=== PATIENT | male | born 1985 | race Hispanic/Latino ===

== ENCOUNTER 2018-06-20 08:55 | Outpatient (CLI) | payer OTHER | END 2018-06-20 08:56 | disposition home or self-care (01) | LOC: DTY/OP 08:55 | PROVIDERS: ATTEND Family Medicine | DX: E11.51 Type 2 diabetes mellitus with diabetic peripheral angiopathy without gangrene (principal); Z71.3 Dietary counseling and surveillance | CPT/HCPCS: 97802 ==

== ENCOUNTER 2019-06-13 12:29 | Day surgery (SDC) | payer OTHER ==
[2019-06-12 14:48] VITALS: BMI 29.4
[~2019-06-13 12:29] MED LIST: Fluorouracil 100 MG, EPINEPHrine 0.3 MG, Dextrose 50% 3 ML in Ophthalmic Irrigation Sol... IRR SCH
[2019-06-13] MEDS ORDERED: Cyclopentolate 1% Opth Drop 2 ML BOT ONE (13:07)
[2019-06-13] MEDS ORDERED: Phenylephrine 2.5% Ophth Soln 5 ML BOT ONE (13:07)
[2019-06-13] MEDS ORDERED: Fentanyl 100 MCG/2 ML VIAL ONE (14:51)
[2019-06-13] MEDS ORDERED: Midazolam HCl 2 mg/2 ml Vial ONE (14:51)
--- NOTE | 2019-06-13 22:57 | OP ---
DATE OF PROCEDURE: 06/13/2019 PREOPERATIVE DIAGNOSIS: Tractional retinal detachment, left eye. POSTOPERATIVE DIAGNOSIS: Tractional retinal detachment, left eye. PROCEDURES PERFORMED: Pars plana vitrectomy and tractional retinal detachment repair, left eye. ANESTHESIA: Local with monitored anesthesia care. PROCEDURE IN DETAIL: The patient was identified in preoperative holding area. Appropriate informed consent for the planned surgical procedure on the left eye had been obtained. The patient was transported to the operative suite. Appropriate cardiopulmonary monitoring was established. Local anesthesia was obtained using retrobulbar modified Van Lint lid block using 50:50 mixture of 4% lidocaine and 0.75% bupivacaine. The patient was prepped and draped in usual sterile manner for ophthalmic surgery, left eye. Lid speculum was placed in the left eye. 25-gauge trocar was placed in conjunctiva and sclera superotemporally, inferotemporally, and supranasally. Infusion line was placed inferotemporally. Light pipe vitreous cutter was inserted into the eye. Core vitrectomy was performed. Extensive tractional elevation of the retina was identified. This was all carefully dissected from the retinal surface using end-gripping forceps and vitreous cutter. No breaks were found. Panretinal photocoagulation was placed into nonmacular areas of the retina. Extensive diathermy was needed to control hemorrhaging. Trocars were removed. Supratemporal sclerotomy was noted to be leaking. It was suture closed with 6-0 plain gut suture. Retrobulbar Kenalog and subconjunctival Ancef were placed. Antibiotic ointment was placed. Eye was patched and shielded. The patient was taken to the postoperative recovery unit in good condition, having suffered no immediate perioperative complications. The patient was instructed to keep patch and shield on. Avoid lifting or bending. Followup appointment in the morning with Dr. Ny. Job ID: [id number]
== END 2019-06-13 17:14 | disposition home or self-care (01) ==
LOC: SDC 12:29
PROVIDERS: ATTEND Ophthalmology Retina Specialist
PROC: 08T53ZZ Resection of Left Vitreous, Percutaneous Approach (ICD-10-PCS; principal; 2019-06-13)
DX: H33.42 Traction detachment of retina, left eye (principal)
CPT/HCPCS: 99283; J0171; J2250; J3010; J9190

== ENCOUNTER 2019-06-13 20:30 | Emergency (ER) | payer OTHER ==
[2019-06-13] MEDS ORDERED: HYDROcodone/Acetaminophen 5/325 mg Tablet ONE (21:00)
== END 2019-06-13 21:23 | disposition home or self-care (01) ==
LOC: ERS 20:30
DX: H59.89 Other postprocedural complications and disorders of eye and adnexa, not elsewhere classified (principal); E11.9 Type 2 diabetes mellitus without complications; Z79.84 Long term (current) use of oral hypoglycemic drugs

== ENCOUNTER 2019-08-22 07:25 | Day surgery (SDC) | payer OTHER ==
[2019-08-21 09:16] VITALS: BMI 30.2
[~2019-08-22 07:25] MED LIST changes: +EPINEPHrine 0.3 MG, Dextrose 50% 3 ML in Ophthalmic Irrigation Solution 500 ML IVP SCH; -Fluorouracil 100 MG, EPINEPHrine 0.3 MG, Dextrose 50% 3 ML in Ophthalmic Irrigation Sol... IRR SCH
[2019-08-22] MEDS ORDERED: Phenylephrine 2.5% Ophth Soln 5 ML BOT ONE (08:16)
[2019-08-22] MEDS ORDERED: Cyclopentolate 1% Opth Drop 2 ML BOT ONE (08:16)
[2019-08-22] MEDS ORDERED: Lidocaine 1% PF 5 ML VIAL ONE (10:34)
[2019-08-22] MEDS ORDERED: Bupivacaine PF 0.75% SDV 10 ML ONE (10:34)
[2019-08-22] MEDS ORDERED: CEFAZOLIN 1 GM VIAL ONE (10:34)
[2019-08-22] MEDS ORDERED: Lidocaine 4% PF 5 ML AMP ONE (10:34)
[2019-08-22] MEDS ORDERED: PROPOFOL 20 ML ONE (11:18)
[2019-08-22] MEDS ORDERED: Midazolam HCl 2 mg/2 ml Vial ONE (11:18)
--- NOTE | 2019-08-22 17:06 | OP ---
DATE OF PROCEDURE: 08/22/2019 PREOPERATIVE DIAGNOSIS: Vitreous hemorrhage, left eye. POSTOPERATIVE DIAGNOSIS: Vitreous hemorrhage, left eye. PROCEDURES PERFORMED: Pars plana vitrectomy and membrane peel, left eye. ANESTHESIA: Local with monitored anesthesia care. DESCRIPTION OF PROCEDURE: The patient was identified in the preoperative holding area. Appropriate informed consent for the planned surgical procedure on the left eye had been obtained. The patient was transported to the operative suite. Appropriate cardiopulmonary monitoring was established. Local anesthesia was obtained using retrobulbar block. The patient was prepped and draped in usual sterile manner for ophthalmic surgery of left eye. Lid speculum was placed in the left eye. 25-gauge trocars were placed in conjunctiva and sclera superotemporally, inferotemporally, and supranasally. Infusion line was placed inferotemporally. Light pipe and vitreous cutter were inserted into the eye. Core vitrectomy was performed. Vitreous hemorrhage was cleared from the vitreous cavity. Trocars were removed. At the end of the case, the inferotemporal trocar site bled reintroducing blood into the eye. Trocars were reintroduced into the eye, and blood was cleared. Trocar sites were suture closed. Subconjunctival Ancef was placed. Antibiotic ointment was placed. The eye was patched and shielded. The patient was taken to postoperative recovery unit in good condition having suffered no immediate perioperative complications. The patient was instructed to keep patch and shield on. Followup appointment with Dr. Ny. Job ID: [id number]
== END 2019-08-22 11:40 | disposition home or self-care (01) ==
LOC: SDC 07:25
PROVIDERS: ATTEND Ophthalmology Retina Specialist
PROC: 08T53ZZ Resection of Left Vitreous, Percutaneous Approach (ICD-10-PCS; principal; 2019-08-22)
DX: H43.12 Vitreous hemorrhage, left eye (principal); Z79.84 Long term (current) use of oral hypoglycemic drugs
CPT/HCPCS: J0171; J0690; J2001; J2250; J2704; J3490

== ENCOUNTER 2021-06-05 02:00 | Emergency (ER) | payer BC, OTHER ==
[2021-06-05 02:55] LABS: #Lymphocytes 0.9 thou/uL (1.20-3.40); #Monocytes 0.3 thou/uL (0.11-0.59); #Neutrophils 1.3 thou/uL (1.40-6.50); %Basophils 1.6 % (0.0-1.0); %Eosinophils 1.9 % (0.0-10.0); %Lymphocytes 35.4 % (21.0-51.0); %Monocytes 9.7 % (0.0-10.0); %Neutrophils 51.5 % (42.0-75.0); Hemoglobin 13.7 g/dL (14.0-18.0); Mean Corpuscular HGB CONC 37.4 g/dL (32.0-36.0); Mean Corpuscular Hemoglobin 33.5 pg (27.0-31.0); Mean Corpuscular Volume 89.6 fL (78.0-98.0); Mean Platelet Volume 7.2 fL (7.4-10.4); Platelet Count 133 thou/uL (130-400); RBC Distribution Width 12.1 % (11.5-14.5); Red Blood Cell (RBC) Count 4.08 mill/uL (4.70-6.10); White Blood Cell (WBC) Count 2.6 thou/uL (4.8-10.8)
[2021-06-05 02:56] LABS: ALT (SGPT) 47 U/L (8-55); AST (SGOT) 28 U/L (5-34); Albumin 3.4 g/dL (3.5-5.0); Alkaline Phosphatase 84 U/L (40-110); Anion Gap 9 mmol/L (10-20); BUN (Urea Nitrogen) 17 mg/dL (8.9-20.6); Bilirubin, Total 0.6 mg/dL (0.2-1.2); Calc. Creatinine Clearance 0 mL/min (70-130); Calcium 8.4 mg/dL (7.8-10.44); Carbon Dioxide 28 mmol/L (22-29); Chloride 102 mmol/L (98-107); Globulin 2.9 g/dL (2.4-3.5); Glucose 150 mg/dL (70-105); Potassium 3.6 mmol/L (3.5-5.1); Protein, Total 6.3 g/dL (6.0-8.3); Sodium 135 mmol/L (136-145)
[2021-06-05] MEDS ORDERED: Iopamidol-370 76% 500 ML 1 ML ONE (09:23)
== END 2021-06-05 06:22 | disposition home or self-care (01) ==
LOC: ERS 02:00
DX: R55 Syncope and collapse (principal); S01.81XA Laceration without foreign body of other part of head, initial encounter; U07.1 COVID-19; E11.9 Type 2 diabetes mellitus without complications; Z79.84 Long term (current) use of oral hypoglycemic drugs; Z79.899 Other long term (current) drug therapy; W19.XXXA Unspecified fall, initial encounter
CPT/HCPCS: 36415; 70450; 71275; 80053; 83880; 84484; 85025; 93005; Q9967

== ENCOUNTER 2023-09-07 11:23 | Emergency (ER) | payer BC ==
[2023-09-07] MEDS ORDERED: Ketorolac Tromethamine 30 MG/ML VIAL ONE (11:39)
[2023-09-07] MEDS ORDERED: Morphine 4 MG/ML VIAL ONE (11:39)
[2023-09-07 11:54] LABS: #Eosinphils 0.1 thou/uL (0.0-0.7); #Monocytes 0.3 thou/uL (0.11-0.59); #Neutrophils 3.7 thou/uL (1.40-6.50); %Basophils 0.4 % (0.0-1.0); %Eosinophils 1.4 % (0.0-10.0); %Lymphocytes 20.5 % (21.0-51.0); %Monocytes 6.4 % (0.0-10.0); %Neutrophils 71.1 % (42.0-75.0); Hematocrit 40.9 % (42.0-52.0); Hemoglobin 14.7 g/dL (14.0-18.0); Mean Corpuscular HGB CONC 35.9 g/dL (32.0-36.0); Mean Corpuscular Hemoglobin 32.2 pg (27.0-31.0); Mean Corpuscular Volume 89.7 fl (78.0-98.0); Mean Platelet Volume 9.5 fL (7.4-10.4); Platelet Count 176 10x3/uL (130-400); RBC Distribution Width 11.8 % (11.5-14.5); Red Blood Cell (RBC) Count 4.56 mill/uL (4.70-6.10); White Blood Cell (WBC) Count 5.1 10x3/uL (4.8-10.8)
[2023-09-07 12:17] LABS: ALT (SGPT) 44 U/L (8-55); AST (SGOT) 32 U/L (5-34); Albumin 3.7 g/dL (3.5-5.0); Alkaline Phosphatase 79 U/L (40-110); Anion Gap 11 mmol/L (10-20); BUN (Urea Nitrogen) 20 mg/dL (8.9-20.6); Bilirubin, Total 0.7 mg/dL (0.2-1.2); Calc. Creatinine Clearance 0 mL/min (70-130); Calcium 8.9 mg/dL (7.8-10.44); Carbon Dioxide 27 mmol/L (22-29); Chloride 109 mmol/L (98-107); Estimated GFR 83; Globulin 2.6 g/dL (2.4-3.5); Glucose 105 mg/dL (70-105); Protein, Total 6.3 g/dL (6.0-8.3); Sodium 143 mmol/L (136-145)
[2023-09-07 12:38] LABS: Bacteria/HPF None Seen HPF (None Seen); Bilirubin Negative (Negative); Blood, Urine 3+ (Negative); CAUTI Indications for Culture Pelvic or flank pain; Clarity Clear (Clear); Glucose, Urine (Dipstick) Normal (Negative); Ketone, Urine Negative (Negative); Leukocyte Negative Leu/uL (Negative); Nitrite Negative (Negative); Protein, Urine (Dipstick) 200 mg/dL (Neg-Trace); Specific Gravity, Urine 1.014 (1.002-1.036); Squamous Epithelial 0-3 HPF (0-3); Urobilinogen Normal mg/dL (Less than 2); WBC/HPF 0-3 HPF (0-3); pH, Urine 5.5 (5.0-9.0)
[2023-09-07 12:44] LABS: Urine Culture Reflex No No
== END 2023-09-07 13:09 | disposition home or self-care (01) ==
LOC: ERS 11:23
DX: R10.9 Unspecified abdominal pain (principal); E11.9 Type 2 diabetes mellitus without complications
CPT/HCPCS: 74176; 80053; 81001; 85025; 96374; 96375; J1885; J2270